=== PATIENT | female | born 1985 ===

== ENCOUNTER 2021-11-01 09:54 | Inpatient (IN) | payer OTHER ==
[~2021-11-01] VITALS: Ht 167.6 cm; Wt 87.1 kg
[2021-11-01 17:55] VITALS: BP_SYST 140
[2021-11-01 22:06] LABS: BASOPHILS % (AUTO) 0.4 % (0.0-2.0); EOSINOPHILS % (AUTO) 0.5 % (0.0-4.0); HEMATOCRIT 36.7 % (36-48); LYMPHOCYTES % (AUTO) 23.5 % (20.5-51.5); MEAN CORPUSCULAR VOLUME 87 fL (79.0-98.0); MONOCYTES # (AUTO) 0.8 K/uL (0.0-1.0); MONOCYTES % (AUTO) 9.5 % (1.7-9.3); NEUTROPHILS # (AUTO) 5.6 K/uL (1.8-7.7); NEUTROPHILS % (AUTO) 66.1 % (40.0-70.0); PLATELET COUNT (AUTO) 157 K/uL (130-430); RED BLOOD CELL COUNT(AUTO) 4.24 MIL/uL (4.2-6.2); WHITE BLOOD COUNT (AUTO) 8.5 K/uL (4.8-10.8)
[2021-11-01] MEDS: TEMAZEPAM 15 MG CAPSULE PO PRN (22:39)
[2021-11-02] MEDS ORDERED: TEMAZEPAM 15 MG CAPSULE PO PRN (21:00)
[2021-11-02] MEDS: TEMAZEPAM 15 MG CAPSULE PO PRN (21:14)
[2021-11-03] MEDS ORDERED: LR 1,000 ML IV ONE (11:00)
[2021-11-03] MEDS ORDERED: TERBUTALINE SULFATE 1 MG/ML VIAL SUBCUT ONE (11:00)
[2021-11-03] MEDS ORDERED: LR 1,000 ML IV SCH (11:00)
[2021-11-03] MEDS ORDERED: OXYTOCIN/0.9 % SODIUM CHLORIDE 1,000 ML IV SCH ×3 (11:00→17:30)
[2021-11-03] MEDS: OXYTOCIN/0.9 % SODIUM CHLORIDE 1,000 ML IV SCH ×2 (11:17→21:46)
[2021-11-03] MEDS: NALBUPHINE HCL 10 MG/ML AMP IVP PRN ×2 (14:34→16:20)
[2021-11-03] MEDS ORDERED: FENT2mCg/mL-ROPIVA0.2%/NS EPID 200 ML EP SCH (14:55)
[2021-11-03] MEDS ORDERED: fentaNYL CITRATE/PF 100 MCG/2 ML AMP ONE (14:56)
[2021-11-03] MEDS ORDERED: ROPIVACAINE HCL/PF 0.2% 200 ML ONE (14:57)
[2021-11-03] MEDS ORDERED: LIDOCAINE PF 1% 30ML(POUR BTL) INJ ONE (16:15)
[2021-11-03] MEDS ORDERED: LIGHT MINERAL OIL 10 ML VIAL MC ONE (16:15)
[2021-11-03] MEDS ORDERED: NALOXONE HCL 0.4 MG/ML AMP (NARCAN) ONE (16:15)
[2021-11-03] MEDS ORDERED: METHYLERGONOVINE MALEATE 0.2 MG/ML AMP ONE (16:37)
[2021-11-03] MEDS ORDERED: DERMOPLAST SPRAY TP PRN (17:30)
[2021-11-03] MEDS ORDERED: OXYTOCIN/0.9 % SODIUM CHLORIDE 1,000 ML IV ONE (17:30)
[2021-11-03] MEDS ORDERED: HYDROCORTISONE 0.5% CREAM 28.4 GM CREAM.GM. TP PRN (17:30)
[2021-11-03] MEDS ORDERED: RHO(D) IMMUNE GLOBULIN/MALTOSE 1500 UNITS/1.3 ML (WINHRO) IM PRN (17:30)
[2021-11-03] MEDS ORDERED: WITCH HAZEL LEAF 1 MED.PAD MED.PAD TP PRN (17:30)
[2021-11-03] MEDS ORDERED: MEASLES,MUMPS&RUBELLA VACC/PF 12500 UNIT/0.5 ML VIAL SUBQ PRN (17:30)
[2021-11-03] MEDS ORDERED: OXYCODONE/ACETAMINOPHEN 5-325 TABLET PO PRN ×2 (17:30)
[2021-11-03] MEDS ORDERED: DIPHTH,PERTUSS(ACELL),TET VAC 0.5 ML VIAL (Tdap) I.M. PRN (17:30)
[2021-11-03] MEDS ORDERED: ANUSOL 1 EA SUPP.RECT (PREPARATION H) RC PRN (17:30)
[2021-11-03] MEDS ORDERED: HYDROcodone/ACETAMIN 5-325 MG TAB (NORCO/ VICODIN) PO PRN (17:30)
[2021-11-03] MEDS ORDERED: METHYLERGONOVINE MALEATE 0.2 MG/ML AMP IM ONE (17:30)
[2021-11-03] MEDS ORDERED: LANOLIN 7 GM OINT. TP PRN (17:30)
[2021-11-03] MEDS ORDERED: ONDANSETRON HCL 4 MG/2 ML VIAL IVP PRN (19:00)
[2021-11-03] MEDS ORDERED: SENNOSIDES/DOCUSATE SODIUM 1 TAB TABLET(SENOKOT-S) PO SCH (21:00)
[2021-11-03] MEDS: IBUPROFEN 600 MG TABLET PO SCH (23:47)
[2021-11-04] MEDS ORDERED: DOCUSATE SODIUM 100 MG CAPSULE PO SCH (09:00)
[2021-11-04] MEDS: IBUPROFEN 600 MG TABLET PO SCH (12:30)
[2021-11-04 13:24] LABS: HEMOGLOBIN 10.8 g/dL (12.0-16.0)
== END 2021-11-04 17:45 | disposition home or self-care (01) | DRG 807 ==
LOC: OBSVTOIN 09:54 → SPU 09:54
PROVIDERS: ADMIT Specialist; ATTEND Specialist
PROC: 10E0XZZ Delivery of Products of Conception, External Approach (ICD-10-PCS; principal; 2021-11-03)
PROC: 3E033VJ Introduction of Other Hormone into Peripheral Vein, Percutaneous Approach (ICD-10-PCS; 2021-11-03)
PROC: 3E0R3BZ Introduction of Anesthetic Agent into Spinal Canal, Percutaneous Approach (ICD-10-PCS; 2021-11-03)
PROC: 00HU33Z Insertion of Infusion Device into Spinal Canal, Percutaneous Approach (ICD-10-PCS; 2021-11-03)
DX: O41.03X0 Oligohydramnios, third trimester, not applicable or unspecified (principal); Z37.0 Single live birth; Z20.822 Contact with and (suspected) exposure to COVID-19; Z3A.39 39 weeks gestation of pregnancy
CPT/HCPCS: 36415; 59025; 76815; 81002; 85018; 85025; 86592; 86886; 86900; 86901; 94760; J2001; J2210; J2300; J2310; J2405; J2590; J3010